=== PATIENT | male | born 1960 | race Caucasian/White ===

== ENCOUNTER 2018-10-27 12:01 | Emergency (ER) | payer OTHER ==
[2018-10-27] MEDS ORDERED: SILVER SULFADIAZINE 1% 25 GM TOP ONE (12:49)
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
== END 2018-10-27 13:33 | disposition home or self-care (01) ==
LOC: ER 12:01
DX: T20.27XA Burn of second degree of neck, initial encounter (principal); X08.8XXA Exposure to other specified smoke, fire and flames, initial encounter; Y93.89 Activity, other specified; Y92.89 Other specified places as the place of occurrence of the external cause; Y99.8 Other external cause status; Z23 Encounter for immunization
CPT/HCPCS: 99284